=== PATIENT | male | born 1970 | race Two or more races ===

== ENCOUNTER 2022-01-02 15:24 | Inpatient (IN) | payer OTHER ==
[2022-01-02 17:16] VITALS: BMI 32.6
[2022-01-02] MEDS ORDERED: IBUPROFEN 400 MG TABLET (FP) PO PRN (18:05)
[2022-01-02] MEDS ORDERED: ONDANSETRON *ODT* 4 MG TABLET SL PRN (18:05)
[2022-01-02] MEDS ORDERED: MENTHOL/PHENOL 1 EACH UD MM PRN (18:05)
[2022-01-02] MEDS ORDERED: MAG HYDROX/AL HYDROX/SIMETH 30 ML UNIT-DOSE CUP PO PRN (18:05)
[2022-01-02] MEDS ORDERED: MAGNESIUM CITRATE 300 ML BOTTLE PO PRN (18:05)
[2022-01-02] MEDS ORDERED: BISMUTH SUBSALICYLATE 524 MG/30 ML PO PRN (18:05)
[2022-01-02] MEDS ORDERED: ACETAMINOPHEN 325 MG TABLET (FP) PO PRN ×2 (18:05)
[2022-01-02] MEDS ORDERED: MAGNESIUM HYDROX 2400MG/30ML ORAL SUSPENSION 30 ML CUP PO PRN (18:05)
[2022-01-02] MEDS ORDERED: DICYCLOMINE HCL 10 MG CAPSULE PO PRN (18:05)
[2022-01-02] MEDS ORDERED: LOPERAMIDE HCL 2 MG CAPSULE PO PRN (18:05)
[2022-01-02] MEDS ORDERED: cloNIDine HCL 0.1 MG TABLET PO PRN (18:07)
[2022-01-02] MEDS: hydrOXYzine PAMOATE 25 MG CAPSULE (FP) PO PRN (20:53)
[2022-01-02] MEDS: METHOCARBAMOL 500 MG TABLET PO PRN (20:53)
[2022-01-02] MEDS: MELATONIN 5 MG TABLETS PO PRN (20:54)
[2022-01-02] MEDS: THIAMINE HCL 100 MG TABLET (FP) PO SCH (21:23)
[2022-01-03] MEDS: ALBUTEROL SO4 HFA INHALER IH PRN ×3 (05:55→20:47)
[2022-01-03] MEDS ORDERED: clonazePAM 0.5 MG ODT TABLETS SL PRN (09:11)
[2022-01-03] MEDS ORDERED: methaDONE HCL 10 MG TABLET (FOR DETOX USE ONLY) PO ONE (09:11)
[2022-01-03] MEDS: PRENATAL VITAMINS W/ FOLIC ACID TABLET (FP) PO SCH (10:15)
[2022-01-03 11:16] LABS: ALBUMIN 3.5 g/dl (3.4-5.0); BLOOD UREA NITROGEN 13.2 mg/dL (7-18); CALCIUM 8.9 mg/dL (8.5-10.1); HEMATOCRIT 39.1 % (35.4-49); HEMOGLOBIN 13.4 GM/dL (11.7-16.9); MCH 29.6 pg (25.7-33.7); MCHC 34.4 g/dl (32.0-35.9); MEAN CELL VOLUME 86.3 fl (80-96); MEAN PLT VOLUME 6.6 fl (7.5-11.1); PLATELET COUNT 187 10^3/uL (134-434); RBC 4.54 M/mm3 (4.00-5.60); RDW 13.5 % (11.9-15.9); WHITE BLOOD COUNT 4.5 K/mm3 (4.0-10.0)
[2022-01-03 11:19] LABS: CREATININE 0.9 mg/dL (0.55-1.3)
[2022-01-03 11:22] LABS: BILIRUBIN,TOTAL 0.4 mg/dL (0.2-1)
[2022-01-03] MEDS: hydrOXYzine PAMOATE 25 MG CAPSULE (FP) PO PRN (22:25)
[2022-01-03] MEDS: MELATONIN 5 MG TABLETS PO PRN (22:25)
[2022-01-03] MEDS: THIAMINE HCL 100 MG TABLET (FP) PO SCH (22:25)
[2022-01-03] MEDS: METHOCARBAMOL 500 MG TABLET PO PRN (22:26)
[2022-01-04] MEDS: ALBUTEROL SO4 HFA INHALER IH PRN ×2 (03:46→09:15)
[2022-01-04] MEDS ORDERED: methaDONE HCL 10 MG TABLET (FOR DETOX USE ONLY) ONE (09:14)
[2022-01-04] MEDS: PRENATAL VITAMINS W/ FOLIC ACID TABLET (FP) PO SCH (10:54)
[2022-01-04] MEDS: hydrOXYzine PAMOATE 25 MG CAPSULE (FP) PO PRN ×2 (10:56→18:00)
[2022-01-04] MEDS: cloNIDine HCL 0.1 MG TABLET PO PRN (18:00)
[2022-01-04] MEDS: THIAMINE HCL 100 MG TABLET (FP) PO SCH (22:33)
[2022-01-04] MEDS: METHOCARBAMOL 500 MG TABLET PO PRN (22:35)
[2022-01-04] MEDS: MELATONIN 5 MG TABLETS PO PRN (22:35)
[2022-01-05] MEDS: ALBUTEROL SO4 HFA INHALER IH PRN ×3 (07:04→22:26)
[2022-01-05] MEDS ORDERED: methaDONE HCL 10 MG TABLET (FOR DETOX USE ONLY) PO ONE (10:00)
[2022-01-05] MEDS: hydrOXYzine PAMOATE 25 MG CAPSULE (FP) PO PRN ×2 (10:57→22:26)
[2022-01-05] MEDS: PRENATAL VITAMINS W/ FOLIC ACID TABLET (FP) PO SCH (10:58)
[2022-01-05 16:08] LABS: SARS-CoV-2 NAA Not Detected (Not Detected)
[2022-01-05] MEDS: THIAMINE HCL 100 MG TABLET (FP) PO SCH (22:26)
[2022-01-05] MEDS: cloNIDine HCL 0.1 MG TABLET PO PRN (22:27)
[2022-01-05] MEDS: METHOCARBAMOL 500 MG TABLET PO PRN (22:27)
[2022-01-05] MEDS: MELATONIN 5 MG TABLETS PO PRN (22:28)
[2022-01-06] MEDS: METHOCARBAMOL 500 MG TABLET PO PRN ×2 (07:04→23:04)
[2022-01-06] MEDS: ALBUTEROL SO4 HFA INHALER IH PRN ×2 (07:17→20:39)
[2022-01-06] MEDS ORDERED: methaDONE HCL 10 MG TABLET (FOR DETOX USE ONLY) ONE (09:31)
[2022-01-06] MEDS: hydrOXYzine PAMOATE 25 MG CAPSULE (FP) PO PRN ×2 (10:37→23:04)
[2022-01-06] MEDS: PRENATAL VITAMINS W/ FOLIC ACID TABLET (FP) PO SCH (10:39)
[2022-01-06] MEDS ORDERED: cloNIDine HCL 0.1 MG TABLET PO PRN (11:19)
[2022-01-06] MEDS: THIAMINE HCL 100 MG TABLET (FP) PO SCH ×2 (22:52→23:06)
[2022-01-06] MEDS: MELATONIN 5 MG TABLETS PO PRN (23:05)
[2022-01-07] MEDS ORDERED: methaDONE HCL 10 MG TABLET (FOR DETOX USE ONLY) PO ONE (10:00)
[2022-01-07] MEDS: PRENATAL VITAMINS W/ FOLIC ACID TABLET (FP) PO SCH (10:35)
[2022-01-07] MEDS: ALBUTEROL SO4 HFA INHALER IH PRN (11:32)
[2022-01-07] MEDS: MELATONIN 5 MG TABLETS PO PRN (22:36)
[2022-01-07] MEDS: THIAMINE HCL 100 MG TABLET (FP) PO SCH (22:36)
[2022-01-07] MEDS: METHOCARBAMOL 500 MG TABLET PO PRN (22:37)
[2022-01-08] MEDS: ALBUTEROL SO4 HFA INHALER IH PRN (07:17)
[2022-01-08 10:04] VITALS: BP 124/80; PULSE 69; TEMP 97.5
[2022-01-08] MEDS: PRENATAL VITAMINS W/ FOLIC ACID TABLET (FP) PO SCH (10:31)
== END 2022-01-08 10:47 | disposition other institution (70) | DRG 773 ==
LOC: YASAS 15:24 → Y3N 19:10
PROVIDERS: ADMIT Allergy & Immunology; ATTEND Allergy & Immunology
PROC: HZ2ZZZZ Detoxification Services for Substance Abuse Treatment (ICD-10-PCS; principal; 2022-01-02)
DX: F11.23 Opioid dependence with withdrawal (principal); F17.210 Nicotine dependence, cigarettes, uncomplicated; J45.909 Unspecified asthma, uncomplicated; R73.9 Hyperglycemia, unspecified
CPT/HCPCS: 36415; 80053; 85027; 86780; 87811; C9803-CS; J0735; U0003; U0005